=== PATIENT | female | born 1955 | race Asian ===

== ENCOUNTER 2018-10-30 01:14 | Emergency (ER) | payer OTHER ==
[2018-10-30] MEDS: IBUPROFEN 600 MG TAB PO (02:26)
[2018-10-30] MEDS: DEXAMETHASONE 10 MG/ML 1 ML INJ IM (02:28)
[2018-10-30] MEDS: IPRATROPIUM (NEB) 0.5 MG/2.5 ML AMP NEB (02:31)
[2018-10-30] MEDS: ALBUTEROL 0.083% (NEB) 2.5 MG/3 ML AMP NEB (02:31)
== END 2018-10-30 04:12 | disposition home or self-care (01) ==
LOC: FTE 01:14
DX: R05 Cough (principal); J45.901 Unspecified asthma with (acute) exacerbation; I10 Essential (primary) hypertension
CPT/HCPCS: 71045; 94664; 96372; 99284-25

== ENCOUNTER 2019-02-20 12:18 | Emergency (ER) | payer OTHER ==
[2019-02-20] MEDS: IBUPROFEN 800 MG TAB PO (13:08)
== END 2019-02-20 14:02 | disposition home or self-care (01) ==
LOC: FTE 12:18
DX: J02.9 Acute pharyngitis, unspecified (principal)
CPT/HCPCS: 99283; Z7610